=== PATIENT | male | born 1980 | race American Indian/Alaskan Native ===

== ENCOUNTER 2016-09-07 13:20 | Emergency (ER) | payer BC ==
[2016-09-07 13:26] VITALS: BP 145/96; PULSE 72; RESP 20; TEMP 97.8; O2SAT 100
--- NOTE | 2016-09-07 13:48 | C.PDOC ---
History Of Present Illness 35 y/o M c no PMHx p/w sore [id number]. Describes as constant burning. Salt water gargles temporarily help. No difficulty swallowing. Denies fever/chills/ sputum production. Time Seen by Provider: 09/07/16 13:29 Chief Complaint (Nursing): ENT Problem Past Medical History Vital Signs: Last Vital Signs Temp 97.8 F 09/07/16 13:23 Pulse 72 09/07/16 13:23 Resp 20 09/07/16 13:23 BP 145/96 H 09/07/16 13:23 Pulse Ox 100 09/07/16 13:50 Family History: States: No Known Family Hx - Social History Hx Alcohol Use: Yes Hx Substance Use: No Review Of Systems Except As Marked, All Systems Reviewed And Found Negative. Constitutional: Negative for: Fever Respiratory: Negative for: Shortness of Breath Physical Exam - Physical Exam Appears: No Acute Distress Head: Normacephalic Ear(s): Bilateral: Normal Oral Mucosa: Moist Tongue: No Swelling Gingiva: No Swelling Throat: No Erythema, No Exudate, No Drooling, Other (Uvula midline) Neck: Normal ROM, Supple Lymphatic: No Adenopathy Cardiovascular: Rhythm Regular Respiratory: Normal Breath Sounds, No Rales, No Rhonchi, No Wheezing ED Course And Treatment O2 Sat by Pulse Oximetry: 100 Medical Decision Making Medical Decision Making: Differential: viral pharyngitis, bacterial pharyngitis, BAG SEWER, post nasal drip/ allergic Plan: Rapid strep, BAG SEWER not likely as no findings of such on physical exam. No cobblestoning on exam. Rapid strep negative. Patient in no distress. Will discharge home, continue ibuprofen, salt water gargles, tea with honey, f/u PMD, return to ER for worsening pain, fever, swelling, dyspnea, or any other problem. Disposition - Disposition Referrals: Fallon Weathers MD [Medical Doctor] - Disposition: HOME/ ROUTINE Disposition Time: 14:13 Condition: STABLE Prescriptions: Ibuprofen [Motrin] 1 tab PO Q6 #30 tab Instructions: Pharyngitis (ED) - Clinical Impression Clinical Impression: Sore throat
== END 2016-09-07 14:39 | disposition home or self-care (01) ==
LOC: C.ER 13:20
DX: J02.9 Acute pharyngitis, unspecified (principal)

== ENCOUNTER 2017-03-21 10:30 | Emergency (ER) | payer BC ==
[2017-03-21 10:36] VITALS: BP 149/86; PULSE 71; RESP 20; TEMP 97.8; O2SAT 100
[2017-03-21] MEDS ORDERED: cefTRIAXone (Rocephin) 250 mg Inj IM STA (10:45)
--- NOTE | 2017-03-21 10:46 | C.PDOC ---
Time Seen by Provider: 03/21/17 10:38 Chief Complaint (Nursing): Male Genitourinary Past Medical History Vital Signs: Last Vital Signs Temp 97.8 F 03/21/17 10:34 Pulse 71 03/21/17 10:34 Resp 20 03/21/17 10:34 BP 149/86 03/21/17 10:34 Pulse Ox 100 03/21/17 10:34 - Social History Hx Alcohol Use: Yes Hx Substance Use: No - Immunization History Hx Tetanus Toxoid Vaccination: No Hx Influenza Vaccination: No Hx Pneumococcal Vaccination: No ED Course And Treatment O2 Sat by Pulse Oximetry: 100 Disposition - Disposition
--- NOTE | 2017-03-21 10:49 | C.PDOC ---
History Of Present Illness 36yo male, with no past medical history, presents to the ED for evaluation of urethral discharge and burning upon urination present since last night. Patient states he had similar episodes 4 years ago. He denies any other medical complaints. Time Seen by Provider: 03/21/17 10:38 Chief Complaint (Nursing): Male Genitourinary History Per: Patient History/Exam Limitations: no limitations Onset/Duration Of Symptoms: Days (1) Current Symptoms Are (Timing): Still Present Associated Symptoms: Urinary Symptoms Past Medical History Reviewed: Historical Data, Nursing Documentation, Vital Signs Vital Signs: Last Vital Signs Temp 97.8 F 03/21/17 10:34 Pulse 71 03/21/17 10:34 Resp 20 03/21/17 10:34 BP 149/86 03/21/17 10:34 Pulse Ox 100 03/21/17 11:29 - Medical History PMH: No Chronic Diseases Surgical History: No Surg Hx Family History: States: No Known Family Hx - Social History Hx Alcohol Use: Yes Hx Substance Use: No - Immunization History Hx Tetanus Toxoid Vaccination: No Hx Influenza Vaccination: No Hx Pneumococcal Vaccination: No Review Of Systems Genitourinary: Positive for: Dysuria, Penile Discharge Physical Exam - Physical Exam Appears: Non-toxic, No Acute Distress Gastrointestinal/Abdominal: Normal Exam, Soft, No Tenderness ED Course And Treatment O2 Sat by Pulse Oximetry: 100 (RA) Pulse Ox Interpretation: Normal Medical Decision Making Medical Decision Making: Impression: Uretheritis Plan: -- Urinalysis -- zithromax 1000 mg PO -- rocephin 250 mg IM Disposition - Disposition Disposition: HOME/ ROUTINE Disposition Time: 11:12 Condition: STABLE Forms: [employer] (Jamaican) - Clinical Impression Clinical Impression: Urethritis - Scribe Statement The provider has reviewed the documentation as recorded by the Osmar Marcelo Provider Attestation: All medical record entries made by the Osmar were at my direction and personally dictated by me. I have reviewed the chart and agree that the record accurately reflects my personal performance of the history, physical exam, medical decision making, and the department course for this patient. I have also personally directed, reviewed, and agree with the discharge instructions and disposition.
[2017-03-21] MEDS ORDERED: cefTRIAXone 250 MG in Lidocaine Hydrochloride 0.9 ML IM ONE (11:00)
[2017-03-21 11:11] LABS: URINE BACTERIA RARE (<OCC); URINE BILIRUBIN NEGATIVE (NEGATIVE); URINE BLOOD NEGATIVE (NEGATIVE); URINE COLOR Yellow (YELLOW); URINE GLUCOSE (UA) NORMAL (Normal); URINE KETONE NEGATIVE (NEGATIVE); URINE LEUKOCYTE ESTERASE NEG Leu/uL (Negative); URINE PROTEIN NEGATIVE (NEGATIVE); WBC URINE 1 /hpf (0-5)
== END 2017-03-21 11:12 | disposition home or self-care (01) ==
LOC: C.ER 10:30
DX: N34.2 Other urethritis (principal)
CPT/HCPCS: 81001; 96372; 99284; J0696

== ENCOUNTER 2017-07-28 07:31 | Emergency (ER) | payer BC ==
[2017-07-28 07:39] VITALS: TEMP 98.2
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
[2017-07-28 08:45] VITALS: BP 123/75; PULSE 60; RESP 16
[2017-07-28 17:58] VITALS: O2SAT 100
== END 2017-07-28 09:00 | disposition home or self-care (01) ==
LOC: C.ER 07:31
DX: M54.5 Low back pain (principal)
CPT/HCPCS: 96372; 99283; J1885

== ENCOUNTER 2017-11-02 16:24 | Emergency (ER) | payer BC ==
[2017-11-02] MEDS ORDERED: cefTRIAXone (Rocephin) 250 mg Inj IM STA (16:32)
--- NOTE | 2017-11-02 17:03 | C.PDOC ---
History Of Present Illness 37 y/o male presents to the ER for evaluation after he had unprotected sexual intercourse 3 days ago. Patient states that he had clear discharge and dysuria. Denies having testicular pain and swelling. Time Seen by Provider: 11/02/17 16:31 Chief Complaint (Nursing): Male Genitourinary History Per: Patient History/Exam Limitations: no limitations Onset/Duration Of Symptoms: Days Current Symptoms Are (Timing): Still Present Past Medical History Reviewed: Historical Data, Nursing Documentation, Vital Signs Vital Signs: Last Vital Signs Temp 98.1 F 11/02/17 17:51 Pulse 66 11/02/17 17:51 Resp 20 11/02/17 17:51 BP 162/68 H 11/02/17 17:51 Pulse Ox 97 11/02/17 19:56 - Medical History PMH: Back Problems Surgical History: No Surg Hx Family History: States: No Known Family Hx - Social History Hx Alcohol Use: Yes Hx Substance Use: No - Immunization History Hx Tetanus Toxoid Vaccination: No Hx Influenza Vaccination: No Hx Pneumococcal Vaccination: No Review Of Systems Except As Marked, All Systems Reviewed And Found Negative. Genitourinary: Positive for: Dysuria, Penile Discharge Physical Exam - Physical Exam Appears: Non-toxic, No Acute Distress Skin: Normal Color, Warm, Dry Head: Atraumatic, Normacephalic Eye(s): bilateral: Normal Inspection Chest: Symmetrical Gastrointestinal/Abdominal: Soft, No Tenderness Back: Normal Inspection Male Genital: No Testicular Swelling, No Scrotal Swelling, Circumcised, Other ( no discharge, no rash) Extremity: Bilateral: Atraumatic Neurological/Psych: Oriented x3, Normal Speech ED Course And Treatment O2 Sat by Pulse Oximetry: 97 (RA) Pulse Ox Interpretation: Normal Medical Decision Making Medical Decision Making: Impression: Urethritis 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 Patient has been discharged and instructed to follow up with doctor in 2-5 days. Disposition Counseled Patient/Family Regarding: Diagnosis, Need For Followup - Disposition Referrals: [facility] [Outside] [facility] [Outside] Disposition: HOME/ ROUTINE Disposition Time: 17:03 Condition: STABLE Additional Instructions: Follow up with the clinic in 2-5 days for further evaluation. [phone]. 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 - Scribe Statement The provider has reviewed the documentation as recorded by the Scribe Lalitha Mock Provider Attestation All medical record entries made by the Scribe were at my direction and personally dictated by me. I have reviewed the chart and agree that the record accurately reflects my personal performance of the history, physical exam, medical decision making, and the department course for this patient. I have also personally directed, reviewed, and agree with the discharge instructions and disposition.
[2017-11-02 17:44] LABS: URINE BILIRUBIN NEGATIVE (NEGATIVE); URINE BLOOD NEGATIVE (NEGATIVE); URINE CLARITY Clear (Clear); URINE COLOR Colorless (YELLOW); URINE GLUCOSE (UA) NORMAL (Normal); URINE LEUKOCYTE ESTERASE NEG Leu/uL (Negative); URINE PROTEIN NEGATIVE (NEGATIVE); URINE UROBILINOGEN NORMAL mg/dL (0.2-1.0)
[2017-11-02 17:52] VITALS: BP 162/68; PULSE 66; RESP 20; TEMP 98.1
[2017-11-02 19:50] VITALS: O2SAT 97
== END 2017-11-02 18:03 | disposition home or self-care (01) ==
LOC: C.ER 16:24
DX: N34.2 Other urethritis (principal)
CPT/HCPCS: 81001; 87491; 87591; 96372; 99284; J0696

== ENCOUNTER 2018-05-16 08:35 | Emergency (ER) | payer BC ==
[2018-05-16 08:48] VITALS: RESP 18; TEMP 97.6
--- NOTE | 2018-05-16 09:08 | C.PDOC ---
History Of Present Illness 37 year old male presents to the ED for evaluation of urethral discharge and urethritis which began one week ago. Patient admits to engaging in unprotected sexual intercourse with his partner. Patient was evaluated in this ED for GC/Chlamydia in October 2017. He denies fever, chills, testicular pain or swelling. Time Seen by Provider: 05/16/18 08:49 Chief Complaint (Nursing): Male Genitourinary History Per: Patient History/Exam Limitations: no limitations Onset/Duration Of Symptoms: Other (one week ) Current Symptoms Are (Timing): Still Present Quality Of Discomfort: denies: "Pain" Associated Symptoms: denies: Fever, Chills Additional History Per: Patient Past Medical History Reviewed: Historical Data, Nursing Documentation, Vital Signs Vital Signs: Last Vital Signs Temp 97.6 F 05/16/18 08:43 Pulse 77 05/16/18 08:43 Resp 18 05/16/18 08:43 BP 149/94 H 05/16/18 08:43 Pulse Ox 100 05/16/18 08:43 - Medical History PMH: Back Problems Surgical History: No Surg Hx Family History: States: Unknown Family Hx - Social History Hx Alcohol Use: Yes Hx Substance Use: No - Immunization History Hx Tetanus Toxoid Vaccination: No Hx Influenza Vaccination: No Hx Pneumococcal Vaccination: No Review Of Systems Constitutional: Negative for: Fever, Chills Genitourinary: Positive for: Other (urethral discharge, urethritis ). Negative for: Penile Discharge, Penile Pain Physical Exam - Physical Exam Appears: Non-toxic, No Acute Distress Skin: Normal Color, Warm, Dry Head: Atraumatic, Normacephalic Eye(s): bilateral: Normal Inspection Male Genital: Other (no lesions, lymphadenopathy or discharge noted. penis unremarkable ) Extremity: Normal ROM Neurological/Psych: Oriented x3, Normal Speech, Normal Cognition ED Course And Treatment O2 Sat by Pulse Oximetry: 100 Progress Note: Urinalysis and GC/Chlamydia test ordered. Zithromax PO and Rocephin IM given. On reassessment, patient is resting comfortably, showing no signs of distress and is stable for dischage. Patient is advised to follow up with his PMD within 1-2 days for further evaluation. Advised to return to the ED if symptoms persist or worsen. Medical Decision Making Medical Decision Making: empirically treat male urethritis for GC/Chlamycia normal genital exam no dc noted, but ho same and high risk sexual exposures. Disposition Doctor Will See Patient In The: Office Counseled Patient/Family Regarding: Studies Performed, Diagnosis - Disposition Referrals: [facility] [Outside] [facility] [Outside] [facility] [Outside] [facility] [Outside] Disposition: HOME/ ROUTINE Disposition Time: 09:22 Condition: GOOD Additional Instructions: you were given Rocephin 250 mg IM and Azithromycin 1000 mg PO this is COMPLETE treatment for suspected GC/Chlamydia No sexual activity for 1 week. have your sexual partner/s tested for same. more complete STD evaluation @ [facility] Instructions: Chlamydia and Gonorrhea, Urethritis (DC) Forms: [employer] ([place]), Work Excuse - Clinical Impression Clinical Impression: Urethritis - Scribe Statement The provider has reviewed the documentation as recorded by the Scribe (Sonia Gibbons) Provider Attestation: All medical record entries made by the Scribe were at my direction and personally dictated by me. I have reviewed the chart and agree that the record accurately reflects my personal performance of the history, physical exam, medical decision making, and the department course for this patient. I have also personally directed, reviewed, and agree with the discharge instructions and disposition.
[2018-05-16] MEDS ORDERED: cefTRIAXone (Rocephin) 250 mg Inj IM STA (09:20)
[2018-05-16 09:31] LABS: URINE BILIRUBIN NEGATIVE (NEGATIVE); URINE BLOOD NEGATIVE (NEGATIVE); URINE CLARITY Clear (Clear); URINE COLOR Yellow (YELLOW); URINE GLUCOSE (UA) NORMAL (Normal); URINE LEUKOCYTE ESTERASE NEG Leu/uL (Negative); URINE PROTEIN NEGATIVE (NEGATIVE)
[2018-05-16 09:53] VITALS: BP 145/86; PULSE 63
[2018-05-16 11:53] VITALS: O2SAT 100
== END 2018-05-16 09:48 | disposition home or self-care (01) ==
LOC: C.ER 08:35
DX: N34.2 Other urethritis (principal)
CPT/HCPCS: 81001; 87491; 87591; 96372; 99284; J0696

== ENCOUNTER 2018-05-16 10:15 | Outpatient (CLI) | payer BC | END 2018-05-16 10:16 | disposition home or self-care (01) | LOC: C.RADH 10:15 | DX: M50.20 Other cervical disc displacement, unspecified cervical region (principal) ==